=== PATIENT | female | born 1955 | race Caucasian/White ===

== ENCOUNTER 2018-01-18 18:00 | Inpatient (IN) | payer MEDICARE ==
[2018-01-18] MEDS ORDERED: ALBUTEROL SULFATE 2.5 MG/3 ML NEBU. NEB (21:15)
[2018-01-18] MEDS: MONTELUKAST SODIUM 10 MG TABLET. PO (22:55)
[2018-01-19] MEDS: clonazePAM 1 MG TABLET PO (01:34)
[2018-01-19 05:18] LABS: PARTIAL THROMBOPLASTIN TIME 33 SEC (24-38); PROTHROMBIN TIME PATIENT 12.5 SEC (11.7-14.0)
[2018-01-19 05:27] LABS: ADD MAN DIFF? NO
[2018-01-19 05:37] LABS: BASO % 0 % (0-3); EOS # 0.4 x10^3/uL (0.0-0.7); EOS % 5 % (0-3); HEMATOCRIT 38.4 % (36.0-47.0); LYMPH # 1.4 x10^3/uL (1.0-4.8); LYMPH % 17 % (24-48); MEAN CORPUSCULAR HEMOGLOBIN 29 pg (25-35); MEAN CORPUSCULAR HGB CONC 34 g/dL (31-37); MEAN CORPUSCULAR VOLUME 86 fL (79-100); MONO # 0.6 x10^3/uL (0.0-1.1); MONO % 7 % (0-9); NEUT % 71 % (31-73); PLATELET COUNT 244 x10^3/uL (140-400); RED BLOOD COUNT 4.45 x10^6/uL (3.50-5.40); RED CELL DISTRIBUTION WIDTH 14.5 % (11.5-14.5); WHITE BLOOD COUNT 8.4 x10^3/uL (4.0-11.0)
[2018-01-19 05:48] LABS: ALBUMIN 3.2 g/dL (3.4-5.0); ALBUMIN/GLOBULIN RATIO 0.9 (1.0-1.7); ALK PHOS 113 U/L (46-116); ALT (SGPT) 60 U/L (14-59); ANION GAP 9 (6-14); AST (SGOT) 51 U/L (15-37); BLOOD UREA NITROGEN 15 mg/dL (7-20); BUN/CREATININE RATIO 17 (6-20); CALCIUM 9.4 mg/dL (8.5-10.1); CARBON DIOXIDE 27 mmol/L (21-32); CHLORIDE 106 mmol/L (98-107); CREATININE 0.9 mg/dL (0.6-1.0); GFR 63.9; GLUCOSE 112 mg/dL (70-99); POTASSIUM 3.8 mmol/L (3.5-5.1); SODIUM 142 mmol/L (136-145); TOTAL BILIRUBIN 0.5 mg/dL (0.2-1.0); TOTAL PROTEIN 6.7 g/dL (6.4-8.2)
[2018-01-19] MEDS: LINACLOTIDE 145 MCG CAPSULE. PO ×2 (07:00→09:19)
[2018-01-19] MEDS: BUDESONIDE 0.5 MG/2 ML NEBU. NEB (07:28)
[2018-01-19] MEDS: PANTOPRAZOLE 40 MG TABLET.DR. PO (07:39)
[2018-01-19] MEDS: POTASSIUM CHLORIDE 20 MEQ/15 ML ORAL LIQUID. PO (07:40)
[2018-01-19] MEDS ORDERED: POTASSIUM CHLORIDE 20 MEQ TABLET.ER. PO (08:00)
[2018-01-19] MEDS: ACETAMINOPHEN 325 MG TABLET. PO (08:14)
[2018-01-19] MEDS: ENOXAPARIN 40 MG/0.4 ML SYRINGE. SQ (09:00)
[2018-01-19] MEDS ORDERED: clonazePAM 1 MG TABLET PO (09:00)
[2018-01-19] MEDS: OXYBUTYNIN CHLORIDE 5 MG TABLET PO ×2 (09:19→13:41)
[2018-01-19] MEDS: LEVOTHYROXINE 112 MCG TABLET PO (09:19)
[2018-01-19] MEDS: ASPIRIN ENTERIC COATED 81 MG TABLET.DR. PO (09:19)
[2018-01-19] MEDS: CITALOPRAM 20 MG TABLET. PO (09:19)
[2018-01-19] MEDS: THEOPHYLLINE 12HR ER 300 MG TAB.ER.12H. PO (09:20)
[2018-01-19] MEDS ORDERED: LIDOCAINE 2% 20 ML VIAL. (10:04)
[2018-01-19] MEDS ORDERED: IODIXANOL 320 MG/ML 100 ML VIAL. (10:04)
[2018-01-19] MEDS ORDERED: CONTRAST GIVEN MC (10:30)
[2018-01-19] MEDS: NITROGLYCERIN 200 MCG/2 ML SYRINGE FOR CATH/VASC LAB. IART (11:02)
[2018-01-19] MEDS: VERAPAMIL 5 MG/2 ML VIAL. IART (11:02)
[2018-01-19] MEDS: IODIXANOL 320 MG/ML 100 ML VIAL. IART (11:02)
[2018-01-19] MEDS: HEPARIN for IV BOLUS 10,000 UNIT/10 ML VIAL. IART (11:06)
[2018-01-19] MEDS: MIDAZOLAM HCL/PF 2 MG/2 ML VIAL. IV (11:07)
[2018-01-19] MEDS: fentaNYL PF VIAL 100 MCG/2 ML VIAL IV (11:07)
[2018-01-19] MEDS: IV 1/2 NORMAL SALINE 1,000 ML IV (11:30)
[2018-01-19] MEDS: MORPHINE SULFATE 4 MG/ML DISP.SYRIN. IV (14:52)
== END 2018-01-19 17:30 | disposition home or self-care (01) | DRG 287 ==
LOC: 2 SOUTH 18:00
PROC: B2111ZZ Fluoroscopy of Multiple Coronary Arteries using Low Osmolar Contrast (ICD-10-PCS; principal; 2018-01-19)
PROC: B2151ZZ Fluoroscopy of Left Heart using Low Osmolar Contrast (ICD-10-PCS; 2018-01-19)
PROC: 4A023N7 Measurement of Cardiac Sampling and Pressure, Left Heart, Percutaneous Approach (ICD-10-PCS; 2018-01-19)
DX: R07.9 Chest pain, unspecified (principal); E66.01 Morbid (severe) obesity due to excess calories; E03.9 Hypothyroidism, unspecified; I25.9 Chronic ischemic heart disease, unspecified; Z68.37 Body mass index [BMI] 37.0-37.9, adult; F17.200 Nicotine dependence, unspecified, uncomplicated; J44.9 Chronic obstructive pulmonary disease, unspecified; K21.9 Gastro-esophageal reflux disease without esophagitis; Z82.49 Family history of ischemic heart disease and other diseases of the circulatory system; Z88.8 Allergy status to other drugs, medicaments and biological substances
CPT/HCPCS: 36415; 80053; 85025; 85610; 85730; 93458; 99152; 99153; C1769; C1892; J1644; J2250; J2270; J3010; J3490; J7626

== ENCOUNTER → 2020-07-06 | Outpatient (CLI) | payer MEDICARE ==
[2020-07-02 10:47] VITALS: BP 141/80
[~2020-07-06] MED LIST: ACET325T9 PO; ALBU2.5V5 NEB; ASPI-630 PO; ASPI81TA50 PO; ATOR10TA60 PO; BENZ-8 PO; BUDE0.5A NEB; CITA40TA5 PO; CLONAZEPAM1 MG PO; ENOX40DI SQ; ESOM40CA PO; FESO8TAB PO; HYDR-2759 PO; HYDR12.58 PO; HYDR25CA PO; LEVO112T49 PO; LEVO25TA4 PO; LINZESS290 MCG PO; MIRA25TA PO; MONT10TA49 PO; MORP1SYR2 IV; OMEP40CA7 PO; OXYB92GE TD; PANT20TA2 PO; POTA10TA12 PO; POTA20TA4 PO; PROVENTIL HFA6.7 G2 INH; THEO300C PO; THEO400T2 PO; TIOT4MIS3 IH; VENTOLIN HFA18 GM INH; ZAFI10TA5 PO; ZAFI20TA12 PO
[2020-07-06 14:21] LABS: ALBUMIN 3.6 g/dL (3.4-5.0); DIRECT BILIRUBIN 0.3 mg/dL (0.0-0.2); TOTAL BILIRUBIN 0.4 mg/dL (0.2-1.0); TOTAL PROTEIN 7.2 g/dL (6.4-8.2)
== END ==
LOC: LAB 13:39
PROVIDERS: ATTEND Nurse Practitioner Family
DX: K80.42 Calculus of bile duct with acute cholecystitis without obstruction (principal); Z68.34 Body mass index [BMI] 34.0-34.9, adult; Z90.49 Acquired absence of other specified parts of digestive tract; Z48.815 Encounter for surgical aftercare following surgery on the digestive system; Z97.8 Presence of other specified devices
CPT/HCPCS: 36415; 80076